=== PATIENT | male | born 1995 | race Caucasian/White ===

== ENCOUNTER 2024-10-28 16:47 | Emergency (ER) | payer OTHER, SELFPAY ==
[2024-10-28 16:51] VITALS: BP 122/81
[2024-10-28 17:07] LABS: % Basophils 0.3 % (0-2); % Eosinophils 0.1 % (0-6); % Immature Granulocytes 0.3 % (0-0.5); % Lymphocytes 12.6 % (20.5-51.1); % Monocytes 6.9 % (1.7-9.3); % Neutrophils 79.8 % (42.2-75.2); Absolute Lymphocytes 1.5 10^3/uL (1.2-3.4); Absolute Monocytes 0.8 10^3/uL (0.1-0.6); Absolute Neutrophils 9.4 10^3/uL (1.4-6.5); Hematocrit 45.9 % (39.0-52.0); Mean Corp Hgb Conc. 34.9 g/dL (33.0-37.0); Mean Corpuscular Hgb 31.2 pg (27.0-31.0); Mean Corpuscular Volume 89.5 fL (80.0-94.0); Mean Platelet Volume 9.2 fL (7.4-10.4); Nucleated Red Blood Cells % 0 % (-); Platelet Count 273 10^3/uL (130-400); Red Blood Cell Count 5.13 10^6/uL (4.70-6.10); Red Cell Dist. Width 12.3 % (11.5-14.5); White Blood Cell Count 11.8 10^3/uL (4.8-10.8)
[2024-10-28 17:24] LABS: AST (SGOT) 25 U/L (17-59); Albumin 5.1 g/dl (3.5-5.0); Blood Urea Nitrogen 16 mg/dl (9-20); Carbon Dioxide 24 mmol/L (22-30); Chloride 106 mmol/L (98-107); Glucose 107 mg/dl (70-99); Potassium 4.6 mmol/L (3.5-5.1); Total Bilirubin 0.7 mg/dl (0.2-1.3); Total Protein 7.7 g/dl (6.3-8.2); eGFR > 60.00
--- NOTE | 2024-10-28 17:29 | ED.GENMED ---
History of Present Illness
General
Chief Complaint: Crisis Evaluation
Source: patient
Exam Limitations: none
Time Seen by Provider: 10/28/24 17:02
Nursing documentation reviewed up to this point in time: agreed with
History of Present Illness
History of Present Illness:
29-year male presents to the ER for evaluation of depression. Patient reports he struggled with depression for most of his life and is on Zoloft. He admits to taking about 1000 mg of Benadryl last night from 1 AM to around 2:30 in the morning. He
woke up at 9 AM and felt numb and tingly to his extremities and reports intermittently since the morning he has been hallucinating. He is seeing people that were not there.
He c/o of a dry mouth. He denies any nausea or vomiting. He denies any chest pain shortness of breath.
He is willing to seek help. No prior history of suicide attempt in the past.
He does have outpatient therapy.
Phy Exam
General Physical Exam
General Presentation: no apparent distress
General age: appears stated age
General Skin: warm and dry
General Habitus: normal
General Mental: alert
General Hydration: dry mucous membranes
Cardiovascular Exam
Cardiovascular Exam: regular rate/rhythm
Pulmonary Exam
Pulmonary Exam: lungs clear and no respiratory distress
Neurological Exam
Neurological Exam: alert and oriented x3
Musculoskeletal Exam
Musculoskeletal Exam: full ROM
Skin Exam
Skin Exam: normal color and warm/dry
Psychiatric Exam
Psychiatric Exam: normal mood/affect
Course
Orders/Labs/Results
Orders:
Orders
10/28/24 16:56
Crisis Consult Urgent
Reason for Consult: SI, hallucinations
10/28/24 17:00
Acetaminophen Urgent
Comment: ADD ON
Alcohol Urgent
Complete Blood Count/With Diff Urgent
Comprehensive Metabolic Panel Urgent
Salicylate Urgent
Comment: ADD ON
10/28/24 17:29
Electrocardiogram (*1) Stat
Reason for Study: Other
Other Reason for Exam: chest pain
EKG- Treatment ONCE
10/28/24 17:33
Add On- LAB Urgent
Tests Added?: Acetaminophen, alcohol, salycilate
10/28/24 17:58
0.9% Sodium Chloride 1000 ml [Nss] 1,000 ml IV BOLUS
10/28/24 20:01
Urine Drug Abuse Screen Urgent
Date Specimen was Collected: 10/28/24
Time Specimen was Collected: 19:59
10/28/24 22:02
Sertraline HCl [Zoloft] 50 mg PO NOW STA
Abnormal Lab Results
10/28/24
17:00
WBC 11.8 H 10^3/uL
(4.8-10.8)
MCH 31.2 H pg
(27.0-31.0)
Absolute Neuts (auto) 9.4 H 10^3/uL
(1.4-6.5)
Absolute Monos (auto) 0.8 H 10^3/uL
(0.1-0.6)
Neutrophils % 79.8 H %
(42.2-75.2)
Lymphocytes % 12.6 L %
(20.5-51.1)
Glucose 107 H mg/dl
(70-99)
Calcium 10.3 H mg/dl
(8.4-10.2)
Albumin 5.1 H g/dl
(3.5-5.0)
Salicylates < 1.0 L mg/dl
(2.0-20.0)
Acetaminophen < 10 L ug/ml
(10-30)
10/28/24 17:00
10/28/24 17:00
Vital Signs
Initial and Last Documented VS:
Initial Vital Signs
Temp Pulse Resp BP Pulse Ox
98.3 F 89 18 122/81 96
10/28/24 16:51 10/28/24 16:51 10/28/24 16:51 10/28/24 16:51 10/28/24 16:51
Last Documented Vital Signs
Temp Pulse Resp BP Pulse Ox
98.3 F 50 17 125/69 98
10/28/24 16:51 10/28/24 21:54 10/28/24 21:54 10/28/24 21:54 10/28/24 21:54
Stock Selector consulted with Physician
Stock Selector consulted with physician?: Yes
Name of Physician Consulted: Danie
MDM/Problems Addressed
Differential Diagnosis Includes:
Not limited suicidal ideation, overdose
MDM/Problems Addressed:
Patient is a 29-year male who presents to the ER for evaluation of suicidal ideation depression. Patient admitted to taking about 1000 g of Benadryl around 1 AM�to approximate 230 the morning. He reports he is intermittent hallucinations. Patient
however presents to the ER awake alert no acute distress he is dry on exam however is mentating appropriately. History was equal round and reactive he is nontachycardic he has a normal temperature and is acting appropriate. No other concerning
findings on exam. Case discussed with poison control who does recommend monitoring from 6 hours from the time of ingestion and since patient has already surpassed that we will check basic labs however patient should be stable for admission to
crisis. Patient was evaluated by crisis he is willing to go inpatient and crisis will fill and completed 201.
Patient has remained calm and cooperative here mother at bedside. Patient has been accepted to [facility]. White count very minimally elevated however no evidence or signs of infection. All other labs unremarkable
*Pulse Oximetry
Patient hypoxic: no
*EKG
Interpreted by ED Provider?: Yes
Heart Rate: 62
Rate: normal
Rhythm: sinus
Ischemia: no ischemia
*Critical Care Note
Total Time (30-74mins, 75-104mins- exclusive of procedures): Not Applicable
Patient Management
Discussion with other providers: Other (poison control JULIÁN riddle )
ED Attending Note
-
Portions of this chart may have been created with voice recognition software.� Occasional wrong word or��sound alike� substitutions may have occurred due to the inherent limitations of voice recognition software.
Discharge Plan
Departure
Patient Disposition: Psych Facility
Date of Disposition: 10/28/24
Time of Disposition: 22:02
Condition: Fair
Covid-19: Not Applicable
Discharge Problem:
Suicidal ideation, Overdose
Prescriptions:
No Action
sertraline [Zoloft] 50 mg Tablet
50 mg PO HS
Referrals:
UNKNOWN - PT DOES,NOT KNOW [Unknown Provider] -
Interventions
Interventions:
*Risk Screen - Suicide Last Done: 10/28/24 16:51
*General Assessment Last Done: 10/28/24 16:51
*Neglect/Abuse Screening Last Done: 10/28/24 16:51
*ED- Fall Risk Assessment Last Done: 10/28/24 18:21
*ED COVID-19 Vaccine History Last Done: 10/28/24 18:21
ED- Neurological Assessment Last Done: 10/28/24 18:21
ED-Psychological Assessment Last Done: 10/28/24 18:21
Discharge Date and Time
Print Language: IRISH
[2024-10-28 17:32] LABS: ALT (SGPT) 33 U/L (0-50); Alkaline Phosphatase 82 U/L (38-126); Calcium 10.3 mg/dl (8.4-10.2); Sodium 141 mmol/L (135-145)
[2024-10-28 18:11] VITALS: BMI 27.2
[2024-10-28] MEDS: NSS 1000 IV (18:22)
[2024-10-28 18:27] LABS: Acetaminophen < 10 ug/ml (10-30); Salicylate < 1.0 mg/dl (2.0-20.0)
[2024-10-28 18:28] LABS: Alcohol None Detected
[2024-10-28 20:19] LABS: Amphetamines Negative (Negative); Barbiturates Negative (Negative); Benzodiazepines Negative (Negative); Buprenorphine Negative (Negative); Cocaine Negative (Negative); Methadone Negative (Negative); Methamphetamines Negative (Negative); Opiates Negative (Negative)
[2024-10-28 20:20] LABS: Marijuana Negative (Negative); Phencyclidine Negative (Negative); Tricyclic Antidepressants Negative (Negative)
[2024-10-28 21:54] VITALS: BP 125/69
[2024-10-28] MEDS: ZOLOFT 50 MG PO (22:16)
== END 2024-10-29 00:19 ==
LOC: EMR 16:47
PROVIDERS: Emergency Medicine; Nurse Practitioner; EMERGENCY PHYSICIAN Emergency Medicine
DX: T50.992A Poisoning by other drugs, medicaments and biological substances, intentional self-harm, initial encounter (principal); R20.0 Anesthesia of skin; F32.A Depression, unspecified; R44.1 Visual hallucinations
CPT/HCPCS: 99284; 96360; 80053; 80143; 80179; 80306; 82077; 85025; 93005